=== PATIENT | male | born 1975 | race Caucasian/White ===

== ENCOUNTER → 2019-03-05 17:50 | Outpatient (CLI) | payer OTHER, SELFPAY ==
--- NOTE | 2019-03-05 | DI.RAD.S_ITS ---
PROCEDURE: XR KNEE LT 3V INDICATIONS: CHRONIC PAIN left KNEE TECHNIQUE: 3 views of the knee were acquired. COMPARISON: None. FINDINGS: Bones: No fractures or dislocations. No suspicious bony lesions. Soft tissues: No joint effusion. No suspicious soft tissue calcifications. IMPRESSION: No trauma found, no effusion or loose body seen, source of pain is not found. Dictated by: Jl Powell M.D. on 03/06/2019 at 8:36 Approved by: Jl Powell M.D. on 03/06/2019 at 8:36
--- NOTE | 2019-03-05 | DI.RAD.S_ITS ---
PROCEDURE: XR HIP W PEL IF DONE RT 2V INDICATIONS: RT HIP PAIN TECHNIQUE: AP pelvis with lateral view(s) of the right hip(s). COMPARISON: None. FINDINGS: Bones: No fractures or dislocations. Pelvic ring appears intact. No suspicious bony lesions. Soft tissues: The visualized bowel gas pattern is normal. No suspicious soft tissue calcifications. IMPRESSION: Mild to moderate right hip joint space narrowing, minimal narrowing of the left hip joint space, no trauma found. Asymmetric osteoarthritis, right greater than left. Dictated by: Jl Powell M.D. on 03/06/2019 at 8:35 Approved by: Jl Powell M.D. on 03/06/2019 at 8:35
--- NOTE | 2019-03-05 | DI.RAD.S_ITS ---
PROCEDURE: XR KNEE RT 3V INDICATIONS: CHRONIC PAIN right KNEE TECHNIQUE: 3 views of the knee were acquired. COMPARISON: None. FINDINGS: Bones: No fractures or dislocations. No suspicious bony lesions. Soft tissues: No joint effusion. No suspicious soft tissue calcifications. IMPRESSION: No source of persistent pain is seen. Dictated by: Jl Powell M.D. on 03/06/2019 at 8:35 Approved by: Jl Powell M.D. on 03/06/2019 at 8:36
== END ==
PROVIDERS: Visit Provider Family Medicine
DX: M25.561 Pain in right knee (principal); M25.562 Pain in left knee; M25.551 Pain in right hip; M16.0 Bilateral primary osteoarthritis of hip; G89.29 Other chronic pain
CPT/HCPCS: 73502; 73562

== ENCOUNTER → 2021-10-21 08:55 | Outpatient (CLI) | payer OTHER, SELFPAY ==
[2021-10-21 19:33] LABS: COVID19 - ORCAS (NP or Nasal) Negative (Negative)
== END ==
PROVIDERS: PCP Physician Assistant; Referring Provider Family Medicine; Visit Provider Family Medicine
DX: Z20.822 Contact with and (suspected) exposure to COVID-19 (principal)
CPT/HCPCS: U0003

== ENCOUNTER 2021-11-02 22:14 | Emergency (ER) | payer OTHER, SELFPAY ==
[2021-11-02 22:19] VITALS: BP 105/66; PULSE 61; RESP 16; TEMP 36.7; O2SAT 99
--- NOTE | 2021-11-02 22:21 | DI.RAD.S_ITS ---
PROCEDURE: XR CHEST 1V INDICATIONS: chest pain TECHNIQUE: One view of the chest was acquired. COMPARISON: None. FINDINGS: Surgical changes and devices: None. Lungs and pleura: Lungs are clear. No pleural effusions or pneumothorax. Mediastinum: Mediastinal contours appear normal. Heart size is normal. Bones and chest wall: No suspicious bony lesions. Overlying soft tissues appear unremarkable. IMPRESSION: No acute pulmonary process. Dictated by: Christine Rossi M.D. on 11/02/2021 at 22:45 Approved by: Christine Rossi M.D. on 11/02/2021 at 22:45
--- NOTE | 2021-11-02 22:25 | ED.CHESTPAIN ---
HPI - Chest Pain General Chief Complaint: Chest Pain Stated Complaint: chest pain Time Seen by Provider: 11/02/21 22:20 Source: patient Mode of arrival: Ambulatory History of Present Illness HPI narrative: 45-year-old male former smoker without any significant chronic medical history presents with a chief complaint a persistent left-sided chest pain that started yesterday and has been present for at least 24 hours. He states that it is on the left side of his chest and feels like a cramp. He denies any obvious provocation or palliation, he denies any radiation. He has had no overuse or injury. He denies any shortness of breath, cough nor other symptoms such as dizziness, weakness, lightheadedness, nausea, vomiting or unexplained diaphoresis. He denies any history of the same. He has had no medication changes, recent travel, history of cancer, blood clot or lower extremity pain, swelling or redness. Related Data Allergies Allergy/AdvReac Type Severity Reaction Status Date / Time No Known Drug Allergies Allergy Verified 01/19/21 08:12 Review of Systems Review of Systems Narrative: GENERAL: Denies chills, fatigue, malaise, fever, sweats. HEENT: Denies sinus pain, ear pain, sore throat, difficulty swallowing, dizziness. RESPIRATORY: Denies dyspnea, cough, wheezing, hemoptysis, sputum. CARDIOVASCULAR: See HP GASTROINTESTINAL: Denies nausea, vomiting, abdominal pain, diarrhea, constipation, melena. : Denies dysuria, frequency, incontinence, hematuria, urinary retention. MUSCULOSKELETAL: denies weakness, joint pain, or bony pain SKIN: Denies rash, skin lesions, or other NEUROLOGIC: Denies weakness, headache, numbness, change in speech, confusion, seizures, incoordination. PSYCHIATRIC: No concerning psychosocial issues. 12 point review of systems is negative except for those stated above Patient History Surgical History S/P vasectomy Social History Smoking Status: Former smoker Smoking Status: Former smoker Exam Narrative Exam Narrative: GENERAL: [45 year old patient appears stated age. Well-developed patient, in mild distress. HEAD: Atraumatic. Normocephalic. EYES: Pupils equal round and reactive. Extraocular motions intact. No scleral icterus. No injection or drainage. ENT: Nose without bleeding, purulent drainage. Throat without erythema, tonsillar hypertrophy or exudate. Airway patent. NECK: Trachea midline. Non tender CARDIOVASCULAR: Regular rate and rhythm without murmurs, gallops, or rubs. RESPIRATORY: Clear to auscultation. Breath sounds equal bilaterally. No wheezes, rales, or rhonchi. GASTROINTESTINAL: Abdomen soft, non-tender, nondistended. EXTREMITIES: No edema or joint tenderness. BACK: Nontender without deformity or crepitance. No flank tenderness. NEURO: AOx3. SKIN: No rash or erythema of visible areas Initial Vital Signs Initial Vital Signs: Vital Signs Temperature 98.1 F 11/02/21 22:19 Pulse Rate 61 11/02/21 22:19 Respiratory Rate 16 11/02/21 22:19 Blood Pressure 105/66 11/02/21 22:19 Pulse Oximetry 99 11/02/21 22:19 Course Orders Ordered: ED Orders 11/02/21 22:21 XR chest 1V Stat EKG-12 Lead Stat 11/02/21 22:25 CRP [C-Reactive Protein Quant] Stat Complete Blood Count AUTO DIFF Stat Comprehensive Metabolic Panel Stat ESR [Erythrocyte Sedimentation Rate] Stat Lipase Stat Troponin & CK Cardiac Panel Stat 11/03/21 EKG-12 Lead Stat 11/03/21 00:25 Troponin & CK Cardiac Panel Stat Sodium Chloride (Normal Saline 0.9%) 1,000 mls @ 150 mls/hr IV CONT CLIFF Last Admin: 11/02/21 22:28 Dose: 150 mls/hr Documented by: NUBIA Discontinued Medications Aspirin (Aspirin 81 Mg Chew Tab) 324 mg PO NOW ONE Stop: 11/02/21 22:21 Last Admin: 11/02/21 22:28 Dose: 324 mg Documented by: NUBIA Ketorolac Tromethamine (Ketorolac 30 Mg/Ml Vial) 15 mg IV NOW ONE Stop: 11/02/21 23:25 Last Admin: 11/02/21 23:37 Dose: 15 mg Documented by: RUBÉN Vital Signs Vital signs: Vital Signs - 8 hr 11/02/21 22:19 Temperature 98.1 F Pulse Rate 61 Respiratory Rate 16 Blood Pressure 105/66 Pulse Oximetry 99 MDM - Chest Pain Lab Data Result diagrams: 11/02/21 22:25 11/02/21 22:25 Labs: Lab Results 11/02/21 11/02/21 11/02/21 Range/Units 22:25 22:25 22:25 WBC 5.1 (4.5-11.0) X10^3/uL RBC 4.49 L (4.5-5.9) X10^6/uL Hgb 12.8 L (13.5-17.5) g/dL Hct 38.2 L (41-53) % MCV 85.1 (80-100) fL MCH 28.6 (26-34) PG MCHC 33.6 (30-36) % RDW 15.1 H (11.6-14.8) % Plt Count 245 (150-400) X10^3/uL Neut % (Auto) 56.5 (50-75) % Lymph % (Auto) 30.4 (25-40) % Kingfisher % (Auto) 9.9 (3-14) % Eos % (Auto) 2.4 (2-4) % Baso % (Auto) 0.8 (0-2) % Neut # (Auto) 2900 (1243-8427) /uL Lymph # (Auto) 1500 (0623-9867) /uL Kingfisher # (Auto) 500 (0-900) /uL Eos # (Auto) 100 (0-450) /uL Baso # (Auto) 0 (0-100) /uL ESR 9 (0-15) MM/HR Sodium 139 (137-145) mmol/L Potassium 4.0 (3.4-5.1) mmol/L Chloride 106 (98-107) mmol/L Carbon Dioxide 27 (22-32) mmol/L BUN 18 (9-20) mg/dL Creatinine 0.84 (0.66-1.25) mg/dL Estimated GFR > 60.0 (>60) mL/min BUN/Creatinine Ratio 21.4 (6-22) Glucose 84 (70-100) mg/dL Calcium 10.3 H (8.4-10.2) mg/dL Total Bilirubin 0.4 (0.2-1.3) mg/dL AST 31 (17-59) IU/L ALT 23 (<50) IU/L Alkaline Phosphatase 48 (38-126) U/L Total Creatine Kinase 143 (55-170) U/L CK-MB (CK-2) 1.99 (<2.37) ng/mL CK-MB (CK-2) Rel Index 1.4 L (1.5-5.0) % Troponin I < 0.012 (0.01-0.034) ng/mL C-Reactive Protein (<1.0) mg/dL Total Protein 7.9 (6.3-8.2) g/dL Albumin 4.4 (3.5-5.0) g/dL Globulin 3.5 (1.7-4.1) g/dL Albumin/Globulin Ratio 1.3 (1.0-2.8) Lipase 38 (23-300) U/L 11/02/21 11/03/21 Range/Units 22:25 00:25 WBC (4.5-11.0) X10^3/uL RBC (4.5-5.9) X10^6/uL Hgb (13.5-17.5) g/dL Hct (41-53) % MCV (80-100) fL MCH (26-34) PG MCHC (30-36) % RDW (11.6-14.8) % Plt Count (150-400) X10^3/uL Neut % (Auto) (50-75) % Lymph % (Auto) (25-40) % Kingfisher % (Auto) (3-14) % Eos % (Auto) (2-4) % Baso % (Auto) (0-2) % Neut # (Auto) (0057-2744) /uL Lymph # (Auto) (7471-7943) /uL Kingfisher # (Auto) (0-900) /uL Eos # (Auto) (0-450) /uL Baso # (Auto) (0-100) /uL ESR (0-15) MM/HR Sodium (137-145) mmol/L Potassium (3.4-5.1) mmol/L Chloride (98-107) mmol/L Carbon Dioxide (22-32) mmol/L BUN (9-20) mg/dL Creatinine (0.66-1.25) mg/dL Estimated GFR (>60) mL/min BUN/Creatinine Ratio (6-22) Glucose (70-100) mg/dL Calcium (8.4-10.2) mg/dL Total Bilirubin (0.2-1.3) mg/dL AST (17-59) IU/L ALT (<50) IU/L Alkaline Phosphatase (38-126) U/L Total Creatine Kinase 124 (55-170) U/L CK-MB (CK-2) 1.65 (<2.37) ng/mL CK-MB (CK-2) Rel Index 1.3 L (1.5-5.0) % Troponin I < 0.012 (0.01-0.034) ng/mL C-Reactive Protein < 0.5 (<1.0) mg/dL Total Protein (6.3-8.2) g/dL Albumin (3.5-5.0) g/dL Globulin (1.7-4.1) g/dL Albumin/Globulin Ratio (1.0-2.8) Lipase (23-300) U/L Imaging Data Chest x-ray: Radiologist's Impression: Launch?[address] [address] XRay Report Signed Patient: Lamont Casas MR#: [id number] : 1975 Acct:[id number] Age/Sex: 45 / M Date of Service: 11/02/21 Loc: ED Accession Number: [id number] ?? Procedure: XR chest 1V Ordering Provider: Remy Brower D.O. PROCEDURE:? XR CHEST 1V ? INDICATIONS:? chest pain ? TECHNIQUE:? One view of the chest was acquired.? ? COMPARISON:? None. ? FINDINGS:? ? Surgical changes and devices:? None.? ? Lungs and pleura:? Lungs are clear.? No pleural effusions or pneumothorax.? ? Mediastinum:? Mediastinal contours appear normal.? Heart size is normal.? ? Bones and chest wall:? No suspicious bony lesions.? Overlying soft tissues appear unremarkable.? ? IMPRESSION:? No acute pulmonary process. ? ? Dictated by: Christine Rossi M.D. on 11/02/2021 at 22:45 ? ? Approved by: Christine Rossi M.D. on 11/02/2021 at 22:45 ? ECG Data Interpretation: EKG is normal sinus rhythm rate [59 ] and free of any signs of ischemia or ectopy. No ST segmental elevation or depression. No T wave inversions MDM Narrative Medical decision making narrative: 45-year-old otherwise healthy male presents with 24 hours of chest discomfort. Multiple causes of chest pain considered including VT, PE, pneumothorax, pneumonia, aortic dissection, and pleurisy. Patient reports no radiation, no diaphoresis, no provocation with exertion, and no vomiting. Patient has multiple nonischemic EKGs and troponin x2 unremarkable. Pulmonary embolism is considered but 1 wells criteria is low and he is PERC negative, no D-dimer needed and no indication for advanced imaging. Pericarditis considered, however inflammatory markers are negative. Patient given extensive return precautions and questions have been answered to his apparent satisfaction Discharge Plan Departure Patient Disposition: Home Clinical Impression: Atypical chest pain Instructions: DI for Atypical Chest Pain Activity Restrictions/Additional Instructions: *You have been diagnosed with [atypical chest pain. Your history, physical exam, labs and EKG are very reassuring. There is no evidence of heart attack, inflammation around her heart, blood clot or other serious or life-threatening diagnosis at this time *What to do: *Please continue to take your regular medications as directed. [ ] New medication prescriptions sent to your pharmacy: [ ] [ ] New medication written as a paper prescription [x ] No new medications given *Please follow up with your primary care provider in 2-3 days, call for an appointment. Let them know you were seen in the Emergency Department and that we ask that you be seen in follow up. We will electronically transmit a record of today's note if your PCP is in our system *If you do not have a primary care provider please contact the [facility] Resource line at [phone]. They will ask some questions about your medical history and help get you set up with a doctor in the community. *Return to Emergency Department if you should have any new, worsening or concerning symptoms, such as [fever greater than 101 F, shaking chills, worsening pain, persistent vomiting or other bothersome symptoms] Referrals: Sol Alvarez PA-C [Primary Care Provider] -
[2021-11-02] MEDS: SODIUM CHLORIDE 0.9% 1,000 ML 150 ML IV (22:28)
[2021-11-02] MEDS: ASPIRIN 81 MG CHEW TAB 324 MG PO (22:28)
[2021-11-02 22:45] LABS: Alanine Aminotransferase 23 IU/L (<50); Albumin 4.4 g/dL (3.5-5.0); Albumin Globulin Ratio 1.3 (1.0-2.8); Alkaline Phosphatase 48 U/L (38-126); Aspartate Aminotransferase 31 IU/L (17-59); BUN Creatinine Ratio 21.4 (6-22); Bilirubin Total 0.4 mg/dL (0.2-1.3); Blood Urea Nitrogen 18 mg/dL (9-20); Calcium 10.3 mg/dL (8.4-10.2); Carbon Dioxide 27 mmol/L (22-32); Chloride 106 mmol/L (98-107); Creatine Kinase 143 U/L (55-170); Estimated Glomerular Filt Rate > 60.0 mL/min (>60); Globulin 3.5 g/dL (1.7-4.1); Glucose 84 mg/dL (70-100); HEMOLYSIS < 15 (0-50); Lipase 38 U/L (23-300); Sodium 139 mmol/L (137-145); Total Protein 7.9 g/dL (6.3-8.2)
[2021-11-02 22:56] LABS: Add Manual Diff / Slide Review NO; Basophils Absolute Auto 0 /uL (0-100); Basophils Percent Auto 0.8 % (0-2); Eosinophils Absolute Auto 100 /uL (0-450); Eosinophils Percent Auto 2.4 % (2-4); Hematocrit 38.2 % (41-53); Hemoglobin 12.8 g/dL (13.5-17.5); Lymphocytes Absolute Auto 1500 /uL (1100-4500); Lymphocytes Percent Auto 30.4 % (25-40); Mean Corpuscular HGB Conc 33.6 % (30-36); Mean Corpuscular Hemoglobin 28.6 PG (26-34); Mean Corpuscular Volume 85.1 fL (80-100); Monocytes Absolute Auto 500 /uL (0-900); Monocytes Percent Auto 9.9 % (3-14); Neutrophils Absolute Auto 2900 /uL (1500-7000); Neutrophils Percent Auto 56.5 % (50-75); Platelet Count 245 X10^3/uL (150-400); Red Blood Cell Count 4.49 X10^6/uL (4.5-5.9); Red Cell Distribution Width 15.1 % (11.6-14.8); Troponin I < 0.012 ng/mL (0.01-0.034); White Blood Cell Count 5.1 X10^3/uL (4.5-11.0)
[2021-11-02 23:00] LABS: CKMB % Relative Index 1.4 % (1.5-5.0); Creatine Kinase MB 1.99 ng/mL (<2.37)
[2021-11-02 23:01] LABS: C-Reactive Protein Quant < 0.5 mg/dL (<1.0)
[2021-11-02 23:20] LABS: Erythrocyte Sedimentation Rate 9 MM/HR (0-15)
[2021-11-02] MEDS: KETOROLAC 30 MG/ML VIAL 15 MG IV (23:37)
[2021-11-03 00:43] LABS: Creatine Kinase 124 U/L (55-170)
[2021-11-03 00:56] LABS: Troponin I < 0.012 ng/mL (0.01-0.034)
[2021-11-03 00:58] LABS: CKMB % Relative Index 1.3 % (1.5-5.0); Creatine Kinase MB 1.65 ng/mL (<2.37)
[2021-11-03 01:25] VITALS: BP 107/56; PULSE 55; RESP 15; O2SAT 97
== END 2021-11-03 01:37 | disposition home or self-care (01) ==
PROVIDERS: Emergency Provider Emergency Medicine; PCP Physician Assistant
DX: R07.89 Other chest pain (principal); Z87.891 Personal history of nicotine dependence
CPT/HCPCS: 36415; 71045; 80053; 82550; 82553; 83690; 84484; 85025; 85651; 86140; 93005; 96361; 96374; 99284; J1885

== ENCOUNTER → 2021-11-17 11:01 | Outpatient (CLI) | payer OTHER, SELFPAY ==
[2021-11-17 18:55] LABS: Alanine Aminotransferase 26 IU/L (<50); Albumin 4.7 g/dL (3.5-5.0); Albumin Globulin Ratio 1.3 (1.0-2.8); Alkaline Phosphatase 61 U/L (38-126); BUN Creatinine Ratio 17.6 (6-22); Bilirubin Total 0.6 mg/dL (0.2-1.3); Blood Urea Nitrogen 18 mg/dL (9-20); Calcium 9.9 mg/dL (8.4-10.2); Carbon Dioxide 31 mmol/L (22-32); Chloride 102 mmol/L (98-107); Cholesterol 213 mg/dL (140-199); Estimated Glomerular Filt Rate > 60.0 mL/min (>60); Globulin 3.6 g/dL (1.7-4.1); Glucose 92 mg/dL (70-100); HDL Cholesterol 73 mg/dL (40-60); HEMOLYSIS < 15 (0-50); LDL Cholesterol Calculated 127 mg/dL (<100); Potassium 4.7 mmol/L (3.4-5.1); Sodium 138 mmol/L (137-145); Total Protein 8.3 g/dL (6.3-8.2); Triglycerides 63 mg/dL (35-150)
[2021-11-17 19:08] LABS: Aspartate Aminotransferase 34 IU/L (17-59)
[2021-11-17 19:10] LABS: Add Manual Diff / Slide Review NO; Basophils Absolute Auto 0 /uL (0-100); Basophils Percent Auto 0.7 % (0-2); Eosinophils Absolute Auto 100 /uL (0-450); Eosinophils Percent Auto 2.1 % (2-4); Hematocrit 39.3 % (41-53); Hemoglobin 13.3 g/dL (13.5-17.5); Lymphocytes Absolute Auto 1400 /uL (1100-4500); Lymphocytes Percent Auto 32.8 % (25-40); Mean Corpuscular HGB Conc 33.8 % (30-36); Mean Corpuscular Hemoglobin 29.1 PG (26-34); Mean Corpuscular Volume 86.2 fL (80-100); Monocytes Absolute Auto 400 /uL (0-900); Monocytes Percent Auto 9.1 % (3-14); Neutrophils Absolute Auto 2400 /uL (1500-7000); Neutrophils Percent Auto 55.3 % (50-75); Platelet Count 284 X10^3/uL (150-400); Red Blood Cell Count 4.57 X10^6/uL (4.5-5.9); White Blood Cell Count 4.3 X10^3/uL (4.5-11.0)
[2021-11-17 19:40] LABS: Vitamin B12 455 pg/mL (239-931)
[2021-11-24 07:13] LABS: Percent Free Testosterone 2.97 % (1.50-4.20); Testosterone Free 15.81 ng/dL (5.00-21.00); Testosterone Total 532.2 ng/dL (264.0-916.0)
== END ==
PROVIDERS: PCP Family Medicine; Visit Provider Family Medicine
DX: D51.9 Vitamin B12 deficiency anemia, unspecified (principal); N52.9 Male erectile dysfunction, unspecified; Z00.00 Encounter for general adult medical examination without abnormal findings
CPT/HCPCS: 80053; 80061; 82607; 84402; 84403; 85025

== ENCOUNTER → 2022-08-15 09:29 | Outpatient (CLI) | payer OTHER, SELFPAY ==
[2022-08-15 20:51] LABS: Urine N gonorrhoeae NOT DETECTED
[2022-08-15 20:57] LABS: Urine Chlamydia NOT DETECTED
== END ==
PROVIDERS: PCP Family Medicine; Visit Provider Physician Assistant
DX: Z11.3 Encounter for screening for infections with a predominantly sexual mode of transmission (principal)
CPT/HCPCS: 87491; 87591

== ENCOUNTER 2022-12-15 10:25 | Day surgery (SDC) | payer OTHER, SELFPAY ==
--- NOTE | 2022-12-15 | PATH_ITS ---
[facility] Accession Number: [id number] No. of containers..01 Tissue . 01 Material submitted: . colon - TRANSVERSE COLON POLYP X2 . 01 Diagnosis: Transverse Colon, Polyp x2, Biopsies: Tubular adenomas. [facility], [facility] 12/20/2022 1702 Local . 01 Electronically signed: . Marita Li MD, Pathologist NPI- [id number] . 01 Gross description: . TRANSVERSE COLON POLYP X2: Received in formalin are 2 fragment(s) of aguilar, soft tissue measuring 2.2 x 0.3 x 0.3 cm to 0.5 x 0.2 x 0.2 cm submitted entirely in 1 cassette(s) /CPE 12/17/2022 0813 Local . 01 Pathologist provided ICD-10: D12.3 . 01 CPT . 920825 Specimen Comment: A courtesy copy of this report has been sent to [phone] Performed at: 01 [facility] [address] [place] [address] Suite [facility], [place], [place] [id number] MD Junaid Hess MD Phone: [phone]
[2022-12-15 10:38] VITALS: BMI 26.3
[2022-12-15 10:42] VITALS: BP 116/74; PULSE 66; RESP 20; TEMP 36.7; O2SAT 99
[2022-12-15] MEDS: LACTATED RINGERS 1,000 ML 42 ML IV (10:46)
--- NOTE | 2022-12-15 10:57 | PM.PREOP ---
Pre-operative Note COVID-19 COVID-19 status: Not tested Interval Note History & Physical reviewed/Exam performed by Physician: Yes Changes to H&P: No ASA Class (for procedural sedation): II
--- NOTE | 2022-12-15 11:53 | P.OP.COLON_ITS ---
Operative Date/Time/Diagnoses Date of procedure: 12/15/22 Time of procedure: 11:53 Pre-op diagnosis: Colon cancer screening Post-op diagnosis: same Procedure & Clinicians Study performed: Colonoscopy Same procedure as scheduled: Yes Surgeon: Connor Gonzalez Procedure Notes Procedure in detail: Surgeon: Connor Gonzalez MD Anesthesia: Sabrina Ibrahim TECHNICAL SALES CONSULTANT Procedure: The patient was brought to the endoscopy suite, placed in left lateral decubitus position. The patient was connected to monitoring devices. A time-out was performed. Sedation was administered. Once the patient was adequately sedated, a digital rectal exam was performed and was normal. The scope was then inserted and advanced to the cecum where the appendiceal orifice was identified and photographed. The scope was then slowly withdrawn over greater than 6 minutes. The mucosa was thoroughly inspected. There was a 7 mm polyp in the proximal transverse colon removed with a cold snare. There was a 7 mm polyp in the distal transverse colon removed with a cold snare. The scope was retroflexed in the rectum. No other abnormalities were seen. The scope was straightened and removed. The patient was awakened and brought to recovery. Scope withdrawal time: 8 minutes Sedation time: 13 minutes EBL: 5 mL Findings: 7 mm polyp in the proximal transverse colon and 7 mm polyp in the distal transverse colon Post-procedure Disposition: PACU
[2022-12-15 11:55] VITALS: BP 88/56; PULSE 62; RESP 12; TEMP 36.4; O2SAT 100
[2022-12-15 12:00] VITALS: BP 94/64; PULSE 60; RESP 16; O2SAT 100
[2022-12-15 12:05] VITALS: BP 112/80; PULSE 60; RESP 20; O2SAT 98
[2022-12-15 12:08] VITALS: BP 112/80; PULSE 60; RESP 18; O2SAT 100
== END 2022-12-15 12:22 | disposition home or self-care (01) ==
PROVIDERS: PCP Physician Assistant; Referring Provider Surgery; Visit Provider Surgery
PROC: 0DJD8ZZ Inspection of Lower Intestinal Tract, Via Natural or Artificial Opening Endoscopic (ICD-10-PCS; CPT 45378; principal; 2022-12-15 11:30)
DX: Z12.11 Encounter for screening for malignant neoplasm of colon (principal); D12.3 Benign neoplasm of transverse colon
CPT/HCPCS: 45385

== ENCOUNTER 2022-12-20 09:19 | Day surgery (SDC) | payer OTHER, SELFPAY ==
[2022-12-13 08:51] VITALS: BMI 27.3
--- NOTE | 2022-12-20 | PATH_ITS ---
[facility] Accession Number: [id number] No. of containers..01 Tissue . 01 Material submitted: . neck - RIGHT POSTERIOR NECK MASS . 01 Diagnosis: Right Posterior Neck Mass, Cyst, Excision: Epidermal inclusion cyst. MARVA 12/23/2022 1138 Local . 01 Electronically signed: . Jodie Zavaleta MD, Pathologist NPI- [id number] . 01 Gross description: . The specimen is received in formalin labeled with the patient's name, , and right neck mass, and consists of an unoriented ellipse of skin measuring 2.7 x 0.7 cm and excised to a depth of 1.5 cm. The margin is inked blue. The specimen is serially sectioned to reveal a small cystic structure measuring 0.5 cm in greatest dimension filled with aguilar grumous material. A senior human resources representative section is submitted in cassette A1. ([id number]) /MARVA 12/21/20221 Local . 01 Pathologist provided ICD-10: L72.0 . 01 CPT . 598530 Specimen Comment: A courtesy copy of this report has been sent to [phone] Performed at: 01 [facility] [address] [place] [address] Suite [facility], [place], [place] [id number] MD Junaid Hess MD Phone: [phone]
[2022-12-20 09:40] VITALS: BMI 27.3
[2022-12-20 09:52] VITALS: BP 103/64; PULSE 61; RESP 14; TEMP 36.6; O2SAT 98
[2022-12-20] MEDS: ACETAMINOPHEN 325 MG TABLET 975 MG PO (10:00)
[2022-12-20] MEDS: LACTATED RINGERS 1,000 ML 42 ML IV (10:01)
--- NOTE | 2022-12-20 10:08 | PM.PREOP ---
Pre-operative Note COVID-19 COVID-19 status: Not tested Interval Note History & Physical reviewed/Exam performed by Physician: Yes Changes to H&P: No ASA Class (for procedural sedation): I
--- NOTE | 2022-12-20 10:39 | SUR.OPER ---
Lateral on a estrada bag, head on pillow, gel axillary roll in place, bottom leg bent with gel pad under knee to foot, upper leg straight and supported with pillows. Upper arm supported by pillows and secured over bottom arm to padded arm board. Safety belt at hip, tape over blanket lower legs.
[2022-12-20] MEDS: BUPIVACAINE 0.25% (PF) VIAL 30 ML INJ (10:44)
--- NOTE | 2022-12-20 10:59 | PM.OP.1 ---
Operative Date/Time/Diagnoses Date of procedure: 12/20/22 Time of procedure: 10:59 Pre-op diagnosis: Neck mass Post-op diagnosis: same Procedure & Clinicians Procedure: Excisional biopsy of right posterior neck mass Same procedure as scheduled: Yes Surgeon: Connor Gonzalez Anesthesia Type: MAC +/- Operative Notes Procedure in detail: The patient was brought to the operating room and placed in the left lateral decubitus position on a beanbag. Pressure points were padded and an axillary roll was used. He was secured to the table. MAC was induced. The right posterior neck was prepped and draped in the usual manner and a time-out was performed. An elliptical incision was made over the mass. The mass was completely excised from the surrounding subcutaneous adipose tissue. The deepest aspect of the mass reached down to the muscle fascia. It appeared to be an epidermal inclusion cyst. A small defect was created in the cyst wall and some cheesy sebaceous type substance was seen but was not spilled. The mass was about 1 cm in diameter. Once the mass was removed wound was inspected. A few small bleeders were cauterized. Additional local was injected into the muscle fascia and surrounding subcutaneous tissue. The wound was then closed with multiple interrupted 3-0 Vicryl dermal sutures and a running 4-0 Monocryl subcuticular stitch. Post-operative Condition: stable Disposition: PACU
[2022-12-20 11:04] VITALS: BP 81/53; PULSE 62; RESP 16; TEMP 36.2; O2SAT 100
[2022-12-20 11:09] VITALS: BP 89/59; PULSE 55; RESP 16; O2SAT 100
[2022-12-20 11:14] VITALS: BP 96/46; PULSE 62; RESP 16; O2SAT 100
[2022-12-20 11:16] VITALS: BP 82/46; PULSE 57; RESP 16; O2SAT 100
== END 2022-12-20 12:20 | disposition home or self-care (01) ==
PROVIDERS: PCP Physician Assistant; Referring Provider Surgery; Visit Provider Surgery
PROC: (CPT 21555; principal; 2022-12-20 10:45)
DX: L72.0 Epidermal cyst (principal)
CPT/HCPCS: 21555; J1885; J2704; J3010

== ENCOUNTER → 2022-12-22 15:00 | Outpatient (CLI) | payer OTHER, SELFPAY ==
--- NOTE | 2022-12-23 02:29 | DI.NM.S_ITS ---
DATE OF SERVICE: 12/22/2022 PROCEDURE: Exercise treadmill stress test without imaging. ORDERING PROVIDER: Navi Altamirano DO. INDICATIONS: The patient is a 47-year-old male with atypical chest pain and a strong family history of heart disease. EXERCISE TREADMILL TESTIN. The patient was able to exercise for 11 minute 31 seconds on a standard Jhonatan protocol suggesting average exercise capacity with an OMAR of -2%, achieving 12.1 METs. 2. He had a normal heart rate and blood pressure response to exercise, achieving a maximum heart rate of 168 BPM (97% of his predicted maximum). 3. He had no chest pain or anginal symptoms. 4. His resting ECG shows sinus rhythm with J-point elevation consistent with normal early repolarization but no significant ST-segment abnormalities. With stress, there were no significant ST-segment shifts or arrhythmias. IMPRESSION: 1. Normal exercise treadmill test for ischemia. 2. Average exercise capacity without angina or arrhythmias. Lamont Casas - IDALIA/mumtaz/kt doc#: [id number]/job#: [id number] dd: 12/22/2022 16:54:00 dt: 12/23/2022 02:19:00 DICTATING /COPIES TO: Montez David MD; Navi Altamirano DO COPIES MNE: SULAIMAN;
== END ==
PROVIDERS: PCP Physician Assistant; Referring Provider Family Medicine; Visit Provider Family Medicine
DX: Z00.00 Encounter for general adult medical examination without abnormal findings (principal); R07.89 Other chest pain; D22.9 Melanocytic nevi, unspecified; D51.8 Other vitamin B12 deficiency anemias
CPT/HCPCS: 93017

== ENCOUNTER → 2023-01-16 11:52 | Outpatient (CLI) | payer OTHER, SELFPAY ==
--- NOTE | 2023-01-16 11:53 | DI.MRI.S_ITS ---
PROCEDURE: MR WRIST RT WO CON INDICATIONS: Right wrist injury, not improving with conservative therapy TECHNIQUE: Noncontrast coronal proton density fast spin echo and T2 fast spin echo with fat saturation; coronal 3-D gradient echo, axial T1 spin echo and T2 fast spin echo with fat saturation, sagittal T1 spin echo through the wrist. COMPARISON: None. FINDINGS: Image quality: Excellent. Bones and cartilage: The carpal bones are normally aligned. No fracture or dislocation. Mild edema involving dorsal aspect of distal radius is seen without discrete fracture line and may represent bony contusion. No evidence for avascular necrosis. Mild osteoarthritic changes are noted in wrist joints with joint space narrowing, subchondral sclerosis and cyst formation most notably at 1st CMC joint. No suspicious bony lesions. Carpal ligaments: The scapholunate and lunotriquetral ligaments appear intact. In the absence of intra-articular contrast, the extrinsic carpal ligaments are not well identified. On sagittal images, the pisohamate ligament appears intact. Triangular fibrocartilage complex: Subtle signal abnormality within triangular fibrocartilage near its ulnar insertion is seen concerning for TFC tear. The adjacent meniscal homolog appears normal in the absence of intra-articular contrast. The extensor carpi ulnaris tendon is thickened with intrasubstance T2 hyperintense signal at the level of ulnar styloid with mild adjacent soft tissue edema. Tendons and soft tissues: The extensor pollicis longus tendon is not well visualized at the level of Janelle's tubercle with small amount of fluid in the area concerning for least moderate to high-grade partial-thickness tear. The carpal tunnel structures appear normal, including the median nerve. The ulnar nerve appears normal within Guyon's canal. Rest of the extensor tendon compartments demonstrate normal morphology, without pathologic tendon sheath fluid. No soft tissue ganglion cysts. IMPRESSION: 1. Mild wrist joint osteoarthritis. Mild bony contusion involving dorsal aspect of distal radius. No fracture or dislocation. No redness of avascular necrosis. 2. Finding is concerning for TFCC tear near its ulnar insertion. 3. Intrinsic and extrinsic wrist ligaments are intact. 4. Tendinosis and low-grade intrasubstance partial-thickness tear involving extensor carpi ulnaris tendon at the level of radial styloid. Suggestion of moderate to high-grade partial-thickness tear involving extensor pollicis longus tendon at the level of Janelle's tubercle. Dictated by: Alexy Soliz M.D. on 01/16/2023 at 14:36 Approved by: Alexy Soliz M.D. on 01/16/2023 at 14:51
== END ==
PROVIDERS: PCP Physician Assistant; Referring Provider Physician Assistant; Visit Provider Physician Assistant
DX: Z02.6 Encounter for examination for insurance purposes (principal); S56.511A Strain of other extensor muscle, fascia and tendon at forearm level, right arm, initial encounter; M19.031 Primary osteoarthritis, right wrist; X58.XXXA Exposure to other specified factors, initial encounter
CPT/HCPCS: 73221

== ENCOUNTER → 2023-01-25 14:44 | Outpatient (CLI) | payer OTHER, SELFPAY ==
[2023-01-25 20:40] LABS: HIV 1 & 2 Ab/Ag 4th Gen Combo NEGATIVE (NEGATIVE); Hep C Virus Ab w/Reflex Quant NEGATIVE s/c (NEGATIVE)
[2023-01-28 08:51] LABS: HSV 2 IGG AB < 0.91 index (0.00-0.90); HSV1IGG < 0.91 index (0.00-0.90); RPR Screen Non Reactive (Non Reactive)
== END ==
PROVIDERS: PCP Physician Assistant; Visit Provider Physician Assistant
DX: Z11.3 Encounter for screening for infections with a predominantly sexual mode of transmission (principal)
CPT/HCPCS: 86592; 86695; 86696; 86803; 87389

== ENCOUNTER → 2023-07-19 09:38 | Outpatient (CLI) | payer OTHER, SELFPAY ==
[2023-07-19 19:41] LABS: Add Manual Diff / Slide Review NO; Basophils Absolute Auto 0 /uL (0-100); Basophils Percent Auto 0.5 % (0-2); Eosinophils Absolute Auto 100 /uL (0-450); Eosinophils Percent Auto 1.9 % (2-4); Hematocrit 41.6 % (41-53); Hemoglobin 14.2 g/dL (13.5-17.5); Lymphocytes Absolute Auto 1300 /uL (1100-4500); Lymphocytes Percent Auto 29.9 % (25-40); Mean Corpuscular Hemoglobin 29.3 PG (26-34); Mean Corpuscular Volume 86.1 fL (80-100); Monocytes Absolute Auto 500 /uL (0-900); Monocytes Percent Auto 11.4 % (3-14); Neutrophils Absolute Auto 2500 /uL (1500-7000); Neutrophils Percent Auto 56.3 % (50-75); Platelet Count 350 X10^3/uL (150-400); Red Blood Cell Count 4.83 X10^6/uL (4.5-5.9); Red Cell Distribution Width 14.9 % (11.6-14.8); White Blood Cell Count 4.4 X10^3/uL (4.5-11.0)
[2023-07-19 19:51] LABS: Alanine Aminotransferase 23 IU/L (<50); Albumin 4.6 g/dL (3.5-5.0); Albumin Globulin Ratio 1.3 (1.0-2.8); Alkaline Phosphatase 59 U/L (38-126); Aspartate Aminotransferase 28 IU/L (17-59); BUN Creatinine Ratio 17.9 (6-22); Bilirubin Total 0.4 mg/dL (0.2-1.3); Blood Urea Nitrogen 17 mg/dL (9-20); Calcium 10.4 mg/dL (8.4-10.2); Carbon Dioxide 30 mmol/L (22-32); Chloride 98 mmol/L (98-107); Cholesterol 207 mg/dL (140-199); Estimated Glomerular Filt Rate > 60 mL/min (>60); Globulin 3.6 g/dL (1.7-4.1); Glucose 103 mg/dL (70-100); HDL Cholesterol 65 mg/dL (40-60); HEMOLYSIS < 15 (0-50); LDL Cholesterol Calculated 116 mg/dL (<100); Potassium 4.9 mmol/L (3.4-5.1); Sodium 138 mmol/L (137-145); Total Protein 8.2 g/dL (6.3-8.2); Triglycerides 131 mg/dL (35-150)
[2023-07-19 20:15] LABS: Prostate Specific Antigen Scrn 2.57 ng/mL (0.1-4.0)
[2023-07-19 20:33] LABS: Vitamin B12 508 pg/mL (239-931)
== END ==
PROVIDERS: PCP Physician Assistant; Visit Provider Physician Assistant
DX: Z12.5 Encounter for screening for malignant neoplasm of prostate (principal); E78.00 Pure hypercholesterolemia, unspecified; D51.8 Other vitamin B12 deficiency anemias; N52.01 Erectile dysfunction due to arterial insufficiency
CPT/HCPCS: 80053; 80061; 82607; 85025; G0103

== ENCOUNTER → 2023-10-10 13:04 | Outpatient (CLI) | payer OTHER, SELFPAY ==
[2023-10-10 19:35] LABS: Add Manual Diff / Slide Review NO; Basophils Absolute Auto 0 /uL (0-100); Basophils Percent Auto 0.4 % (0-2); Eosinophils Absolute Auto 0 /uL (0-450); Eosinophils Percent Auto 1.2 % (2-4); Hematocrit 39.1 % (41-53); Hemoglobin 13.6 g/dL (13.5-17.5); Lymphocytes Absolute Auto 1100 /uL (1100-4500); Lymphocytes Percent Auto 29.6 % (25-40); Mean Corpuscular HGB Conc 34.7 % (30-36); Mean Corpuscular Hemoglobin 30.9 PG (26-34); Mean Corpuscular Volume 88.8 fL (80-100); Monocytes Absolute Auto 400 /uL (0-900); Monocytes Percent Auto 9.4 % (3-14); Neutrophils Absolute Auto 2300 /uL (1500-7000); Neutrophils Percent Auto 59.4 % (50-75); Platelet Count 260 X10^3/uL (150-400); Red Blood Cell Count 4.41 X10^6/uL (4.5-5.9); Red Cell Distribution Width 15.1 % (11.6-14.8); White Blood Cell Count 3.9 X10^3/uL (4.5-11.0)
== END ==
PROVIDERS: PCP Physician Assistant; Visit Provider Physician Assistant
DX: R79.9 Abnormal finding of blood chemistry, unspecified (principal)
CPT/HCPCS: 85025

== ENCOUNTER → 2023-12-13 12:58 | Outpatient (CLI) | payer OTHER, SELFPAY ==
[2023-12-13 19:49] LABS: HEMOLYSIS < 15 (0-50); Hemoglobin 12.9 g/dL (13.5-17.5); Iron 93 ug/dL (49-181); Mean Corpuscular HGB Conc 34.1 % (30-36); Mean Corpuscular Hemoglobin 29.2 PG (26-34); Mean Corpuscular Volume 85.7 fL (80-100); Platelet Count 292 X10^3/uL (150-400); Red Blood Cell Count 4.44 X10^6/uL (4.5-5.9); Red Cell Distribution Width 15.3 % (11.6-14.8)
[2023-12-13 20:01] LABS: Percent Iron Saturation 31 % (20-50); Total Iron Binding Capacity 303 ug/dL (261-462); Transferrin 260 mg/dL (206-381)
[2023-12-13 20:15] LABS: Neutrophils Absolute Manual 2900 /uL (3000-5900); RBC Morphology Normal Morphology; Total Cells Counted 100
[2023-12-13 20:27] LABS: Ferritin 87 ng/mL (18-464)
[2023-12-13 20:58] LABS: Folate 12.3 ng/mL (2.76-20.0); Vitamin B12 469 pg/mL (239-931)
== END ==
PROVIDERS: PCP Physician Assistant; Visit Provider Physician Assistant
DX: R79.9 Abnormal finding of blood chemistry, unspecified (principal); R53.83 Other fatigue; D51.8 Other vitamin B12 deficiency anemias
CPT/HCPCS: 82607; 82728; 82746; 83540; 83550; 85025

== ENCOUNTER → 2024-01-10 08:57 | Outpatient (CLI) | payer OTHER, SELFPAY ==
[2024-01-15 21:55] LABS: Fecal Immunochemical Test Negative (Negative)
== END ==
PROVIDERS: PCP Physician Assistant; Referring Provider Physician Assistant Medical; Visit Provider Physician Assistant Medical
DX: D51.8 Other vitamin B12 deficiency anemias (principal); E78.00 Pure hypercholesterolemia, unspecified; N52.01 Erectile dysfunction due to arterial insufficiency
CPT/HCPCS: 82274

== ENCOUNTER → 2024-10-23 10:02 | Outpatient (CLI) | payer OTHER, SELFPAY ==
[2024-10-23 19:13] LABS: Add Manual Diff / Slide Review NO; Basophils Absolute Auto 0 /uL (0-100); Basophils Percent Auto 0.7 % (0-2); Eosinophils Absolute Auto 100 /uL (0-450); Eosinophils Percent Auto 1.7 % (2-4); Hematocrit 41.4 % (41-53); Lymphocytes Absolute Auto 1300 /uL (1100-4500); Lymphocytes Percent Auto 30.7 % (25-40); Mean Corpuscular HGB Conc 33.8 % (30-36); Mean Corpuscular Hemoglobin 29.4 PG (26-34); Mean Corpuscular Volume 87.1 fL (80-100); Monocytes Absolute Auto 500 /uL (0-900); Neutrophils Absolute Auto 2400 /uL (1500-7000); Neutrophils Percent Auto 55.9 % (50-75); Platelet Count 292 X10^3/uL (150-400); Red Blood Cell Count 4.75 X10^6/uL (4.5-5.9); Red Cell Distribution Width 15.3 % (11.6-14.8); White Blood Cell Count 4.3 X10^3/uL (4.5-11.0)
[2024-10-23 19:24] LABS: Cholesterol 193 mg/dL (140-199); HDL Cholesterol 83 mg/dL (40-60); LDL Cholesterol Calculated 100 mg/dL (<100); Triglycerides 48 mg/dL (35-150)
== END ==
PROVIDERS: PCP Physician Assistant; Visit Provider Physician Assistant
DX: D64.9 Anemia, unspecified (principal); Z13.6 Encounter for screening for cardiovascular disorders
CPT/HCPCS: 80061; 85025